=== PATIENT | male | born 1975 | race African-American/Black ===

== ENCOUNTER 2017-07-06 17:57 | Emergency (ER) | payer OTHER ==
[2017-07-06 18:05] VITALS: BP 130/79
[2017-07-06] MEDS ORDERED: DEXAMETHASONE SOD PHOS INJ 10 MG/1 ML VIAL IM ONE (18:50)
[2017-07-06] MEDS ORDERED: KETOROLAC TROMETHAMINE 60 MG/2 ML SDV IM ONE (18:50)
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
== END 2017-07-06 19:27 | disposition home or self-care (01) ==
LOC: ER 17:57
DX: M25.511 Pain in right shoulder (principal); V49.40XA Driver injured in collision with unspecified motor vehicles in traffic accident, initial encounter; F17.210 Nicotine dependence, cigarettes, uncomplicated; Z71.6 Tobacco abuse counseling
CPT/HCPCS: 99283; 96372; J1885; J1100